=== PATIENT | male | born 1985 | race Caucasian/White ===

== ENCOUNTER 2019-10-08 22:12 | Emergency (ER) | payer SELFPAY ==
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
== END 2019-10-08 22:47 | disposition other institution (70) ==
LOC: JD.ED 22:12
DX: S61.511A Laceration without foreign body of right wrist, initial encounter (principal); S41.111A Laceration without foreign body of right upper arm, initial encounter; S21.119A Laceration without foreign body of unspecified front wall of thorax without penetration into thoracic cavity, initial encounter; X58.XXXA Exposure to other specified factors, initial encounter
CPT/HCPCS: 99283